=== PATIENT | male | born 1975 | race Caucasian/White ===

== ENCOUNTER 2023-10-02 04:45 | Emergency (ER) | payer OTHER ==
[~2023-10-02] VITALS: Ht 167.6 cm; Wt 62.1 kg
[2023-10-02] MEDS ORDERED: KETOROLAC TROMETHAMINE INJ 30 MG/ML VIAL ONE (05:23)
[2023-10-02] MEDS ORDERED: ACETAMINOPHEN ES 500 MG TABLET ONE (05:23)
[2023-10-02] MEDS ORDERED: CYCLOBENZAPRINE 10 MG TABLET ONE (05:24)
[2023-10-02] MEDS ORDERED: DIAZEPAM 5 MG TABLET ONE ×2 (05:25→07:13)
[2023-10-02] MEDS ORDERED: ACETAMINOPHEN ES 500 MG TABLET PO ONE (05:30)
[2023-10-02] MEDS ORDERED: CYCLOBENZAPRINE 10 MG TABLET PO ONE (05:30)
[2023-10-02] MEDS ORDERED: DIAZEPAM 5 MG TABLET PO ONE ×3 (05:30→07:00)
[2023-10-02] MEDS ORDERED: KETOROLAC TROMETHAMINE INJ 30 MG/ML VIAL IM ONE (05:30)
[2023-10-02] MEDS ORDERED: LIDOCAINE 5% (PATCH) 1 EA PATCH TP SCH (07:00)
[2023-10-02] MEDS ORDERED: dexaMETHasone SOD PHOSPHATE 4 MG/ML VIAL IM ONE (07:00)
[2023-10-02] MEDS ORDERED: LIDOCAINE 5% (PATCH) 1 EA PATCH TP ONE (07:12)
[2023-10-02] MEDS ORDERED: ACET-2605 PO (07:32)
[2023-10-02] MEDS ORDERED: CYCL10TA9 PO (07:32)
[2023-10-02] MEDS ORDERED: ONDANSETRON HCL/PF 4 MG/2 ML VIAL IV ONE (08:30)
[2023-10-02] MEDS ORDERED: MORPHINE SULFATE INJ 2 MG/ML DISP.SYRIN IV ONE (08:30)
[2023-10-02 09:06] VITALS: BP 121/81; TEMP 98.2; O2SAT 100
== END 2023-10-02 08:30 | disposition home or self-care (01) ==
LOC: ER 04:47
DX: M62.838 Other muscle spasm (principal)
CPT/HCPCS: 99284; 96372 ×2; J1885